=== PATIENT | female | born 1965 | race Caucasian/White ===

== ENCOUNTER → 2017-06-28 | Outpatient (CLI) | payer BC ==
[~2017-06-28] MED LIST: ACET-24 PO; ALPR0.25 PO; ASPI81TA28 PO; ATV/1 SL; CALC500C70 PO; CALC600T37 PEG; CHOL1000 PO; CLB200 PO; FLAX100019 PO; FLUO40CA8 PO; FLUT0.15; HYDR-3292 TOP; MULT-506 PO; OMEG10007 PO; ONDA8TAB6 PO; RANI150T3 PO; RXC5 PO; SIMV20TA2 PO; SNK PO; XANAX
--- NOTE | 2017-06-29 12:46 | MAMMOGRAPHY REPORT ---
BILATERAL DIGITAL SCREENING MAMMOGRAM TOMOSYNTHESIS WITH CAD: 06/28/2017 CLINICAL HISTORY: Routine screening. Patient has no complaints. TECHNIQUE: Breast tomosynthesis in addition to standard 2D mammography was performed. Current study was also evaluated with a Computer Aided Detection (CAD) system. COMPARISON: Comparison is made to exams dated: 06/10/2016 mammogram, 03/05/2015 mammogram, 02/27/2014 anurag mogram, 01/18/2013 mammogram, 01/11/2012 mammogram, and 01/10/2011 mammogram - [facility]. BREAST COMPOSITION: The tissue of both breasts is almost entirely fatty. FINDINGS: There are benign rim calcifications in the left breast. No new suspicious mass, architectu ral distortion or cluster of microcalcifications is seen. IMPRESSION: ACR BI-RADS CATEGORY 1: NEGATIVE There is no mammographic evidence of malignancy. A 1 year screening mammogram is recommended. The pa tient will receive written notification of the results. Approximately 10% of breast cancers are not detected with mammography. A negative mammographic report should not delay biopsy if a clinically suggestive mass is present. Vani Rivas M.D. ay/:06/28/2017 15:07:17 Drapery Supervisor: Billie SANTOYO(Nelda)(Callie)(BD), [facility] letter sent: Normal 1/2 BI-RADS Code: ACR BI-RADS Category 1: Negative
== END | disposition home or self-care (01) ==
LOC: C.MAMM 14:08
PROVIDERS: ATTEND Nurse Practitioner Family
DX: Z12.31 Encounter for screening mammogram for malignant neoplasm of breast (principal)

== ENCOUNTER 2017-08-30 05:08 | Inpatient (IN) | payer BC ==
[2017-08-16 09:42] VITALS: BMI 38.0
--- NOTE | 2017-08-16 10:24 | PAT Medication Instructions ---
Service Date Aug 16, 2017. Current Home Medication List Alprazolam (Xanax), 1 TAB PO TID PRN for Anxiety/Agitation Aspirin (Aspirin Ec), 81 MG PO QAM Calcium (Calcium), 1 TAB PEG QAM Cholecalciferol (Vitamin D3), 1 TAB PO QA Fish Oil (Skykomish-3), 1 CAP PO QAM Flaxseed (Linseed) (Flaxseed Oil 1000 mg), 1 TAB PO Q12 Fluoxetine (Prozac), 40 MG PO QAM Fluticasone Propionate (Nasal) (Flonase Allergy Relief), 2 SPRAYS NA QAM Hydroquinone (Tl Hydroquinone), 1 APPLN TOP BID Lorazepam (Ativan), 1 MG SL DAILY PRN for Anxiety Multivitamin (Multivitamin), 1 TAB PO QAM Ranitidine Hcl (Zantac), 150 MG PO BID Simvastatin (Zocor), 20 MG PO QPM Medication Instructions For Your Scheduled Surgery - Hold the following medications 2 weeks prior to surgery: Fish Oil (Skykomish-3), 1 CAP PO QAM Flaxseed (Linseed) (Flaxseed Oil 1000 mg), 1 TAB PO Q12 - Hold the following medications 24 hours prior to surgery: Hydroquinone (Tl Hydroquinone), 1 APPLN TOP BID - Hold the following medications the morning of surgery: Calcium (Calcium), 1 TAB PEG QAM Cholecalciferol (Vitamin D3), 1 TAB PO QA Multivitamin (Multivitamin), 1 TAB PO QAM - Take the following medications the morning of surgery with a sip of water OTHERWISE NOTHING TO EAT OR DRINK AFTER MIDNIGHT: Alprazolam (Xanax), 1 TAB PO TID PRN for Anxiety/Agitation Aspirin (Aspirin Ec), 81 MG PO QAM Fluoxetine (Prozac), 40 MG PO QAM Ranitidine Hcl (Zantac), 150 MG PO BID Fluticasone Propionate (Nasal) (Flonase Allergy Relief), 2 SPRAYS NA QAM - Take the following medications as scheduled the night before surgery: Alprazolam (Xanax), 1 TAB PO TID PRN for Anxiety/Agitation Simvastatin (Zocor), 20 MG PO QPM Ranitidine Hcl (Zantac), 150 MG PO BID If you have any questions please call us at [phone] or [phone] or [phone]
--- NOTE | 2017-08-16 10:56 | DIAGNOSTIC IMAGING REPORT ---
CHEST PREADMISSION(PA/LAT) CLINICAL HISTORY: PAT preoperative evaluation COMPARISON STUDY: No previous studies for comparison. FINDINGS: The bones soft tissues and hemidiaphragms are normal. The cardiomediastinal silhouette is normal. The lungs are clear. The pulmonary vasculature is normal. IMPRESSION: Negative chest. The above report was generated using voice recognition software. It may contain grammatical, syntax or spelling errors. Electronically signed by: Jhony Solo M.D. 08/16/2017 10:55 AM Dictated Date/Time: 08/16/2017 10:55 AM
[2017-08-16 11:33] LABS: BASO % 0.5 %; BASO ABS # 0.04 K/uL (0-0.2); COMPLETE YES; EOS % 2.3 %; IG% 0.1 %; LYMPH % 25.1 %; LYMPH ABS # 1.83 K/uL (1.2-3.4); MEAN CELL VOLUME 89.8 fL (80-100); MEAN CORPUSCULAR HEMOGLOBIN 30.4 pg (25-34); MEAN CORPUSCULAR HGB CONC 33.9 g/dl (32-36); MEAN PLATELET VOLUME 11.8 fL (7.4-10.4); PLATELET COUNT 223 K/uL (130-400); WHITE BLOOD COUNT 7.28 K/uL (4.8-10.8)
[2017-08-16 11:35] LABS: URINE APPEARANCE CLEAR (CLEAR); URINE BILIRUBIN NEG (NEG); URINE COLOR YELLOW; URINE NITRITE NEG (NEG); UROBILINOGEN NEG (NEG)
[2017-08-16 11:43] LABS: MANUAL MICROSCOPIC REQUIRED? NO; REVIEW REQ? NO
[2017-08-16 11:44] LABS: PARTIAL THROMBOPLASTIN RATIO 1.1; PROTHROMBIN TIME (PATIENT) 10.7 SECONDS (9.0-12.0)
[2017-08-16 12:02] LABS: CALCIUM 9.3 mg/dl (8.5-10.1); CREATININE 0.89 mg/dl (0.60-1.20); POTASSIUM 4.2 mmol/L (3.5-5.1)
[2017-08-16 12:21] LABS: ESTIMATED AVERAGE GLUCOSE 105 mg/dl; HA1C FLAG Normal (Normal)
--- NOTE | 2017-08-29 16:12 | HISTORY & PHYSICAL EXAMINATION ---
DATE OF ADMISSION: 08/30/2017 HISTORY OF PRESENT ILLNESS: The patient presents as a very pleasant 51-year-old white female, 5 feet 10 inches, 190 pounds who presents with complaints of ongoing severe DJD about her left knee. She has been nonresponsive to conservative therapy including relative rest, activity modification, viscosupplementation, corticosteroid injection, bracing. She presents for left total knee arthroplasty after failing all attempts at conservative management and having thorough discussion regarding risks, complications of such. PAST MEDICAL HISTORY: Significant for sleep apnea, anxiety, acid reflux, obesity. FAMILY HISTORY: Otherwise unremarkable and noncontributory. SOCIAL HISTORY: The patient denies history of smoking, relates 1 alcoholic drink per week and no recreational drug use. PAST SURGICAL HISTORY: Significant for 1991 previous trigger finger surgery, cyst removal from wrist, tonsillectomy. ALLERGIES: None. MEDICATIONS: Include Prozac, simvastatin, ranitidine, aspirin, fish oil. REVIEW OF SYSTEMS: Otherwise unremarkable. See history of present illness for pertinent positives. PHYSICAL EXAMINATION: GENERAL: Reveals a very pleasant 51-year-old white female, alert and oriented x3. HEAD, EYES, EARS, NOSE, AND THROAT: Atraumatic, in no acute distress. HEART: Regular at 72 beats per minute. LUNGS: Clear, no rales, rhonchi, or wheezes noted. ABDOMEN: Soft, nontender, nondistended. Bowel sounds are present in all 4 quadrants. MUSCULOSKELETAL EXAMINATION: Consistent with that of severe end-stage tricompartmental degenerative joint disease of the left knee. PLAN: Left total knee arthroplasty, postoperative pain management, DVT prophylaxis, antibiotics.
[2017-08-30] VITALS (10 sets, daily range): BP systolic 105–135; BP diastolic 61–82; PULSE 72–95; TEMP 36.4–37; O2SAT 94–100; Ht 154.9 cm; Wt 90.5 kg
[~2017-08-30] VITALS: Ht 154.9 cm; Wt 90.5 kg
[~2017-08-30 05:08] MED LIST changes: -ACET-24 PO; -ATV/1 SL; -CALC500C70 PO; -CLB200 PO; -ONDA8TAB6 PO; -RXC5 PO; -SNK PO; -XANAX
[2017-08-30] MEDS ORDERED: CALC500C70 PO (05:58)
[2017-08-30] MEDS ORDERED: ROPIVACAINE 5MG/ML 30 ML 150 MG, BUPIVACAINE/EPINEPHR 0.5% MPF 30 ML, KETOROLAC TROMETH... INFIL SCH ×7 (06:00)
[2017-08-30] MEDS ORDERED: FAMOTIDINE 20 MG TAB PO SCH (06:00)
[2017-08-30] MEDS ORDERED: LACTATED RINGER'S 1000ML IV SCH (06:00)
[2017-08-30] MEDS ORDERED: CeleBREX 200 MG CAP PO SCH (06:00)
[2017-08-30] MEDS ORDERED: METOCLOPRAMIDE HCL 10 MG TAB PO SCH (06:00)
[2017-08-30] MEDS ORDERED: LACTATED RINGER'S 1000ML 500 ML IV ONE (06:00)
[2017-08-30] MEDS ORDERED: GABAPENTIN 300 MG CAP PO SCH (06:00)
[2017-08-30] MEDS ORDERED: LACTATED RINGER'S 1000ML 1,000 ML IV SCH (06:00)
[2017-08-30] MEDS ORDERED: CEFAZOLIN 2000 MG/60 ML D5W 60 ML IV SCH (06:00)
[2017-08-30] MEDS ORDERED: ACETAMINOPHEN 500 MG TAB PO SCH (06:00)
[2017-08-30] MEDS ORDERED: DEXAMETHASONE 4 MG TAB PO SCH (06:00)
[2017-08-30] MEDS ORDERED: BUPIVACAINE 0.25% 30 ML VIAL ONE (06:23)
[2017-08-30] MEDS ORDERED: BUPIVACAINE 0.5 % 5 MG/1 ML PF 10ML VIAL ONE (06:23)
[2017-08-30] MEDS ORDERED: MIDAZOLAM HCL 1 MG/ML 2ML VIAL ONE (06:27)
[2017-08-30] MEDS ORDERED: PROPOFOL IV EMULSION 10 MG/ML 20 ML VIAL IV ONE ×2 (06:27→08:11)
[2017-08-30] MEDS ORDERED: FENTANYL CITRATE INJ 50 MCG/1 ML 2 ML VIAL ONE (06:27)
[2017-08-30] MEDS: TRANEXAMIC ACID INJ 1,000 MG in SODIUM CHLORIDE 0.9% 100ML 100 ML IV SCH ×2 (06:30→06:50)
[2017-08-30] MEDS ORDERED: POVIDONE-IODINE OP SOLN 30 ML BTL ONE (06:41)
[2017-08-30] MEDS ORDERED: ORTHO JOINT ANESTHETIC ONE (06:41)
[2017-08-30] MEDS ORDERED: BACITRACIN 50000 UNIT VIAL ONE (06:41)
--- NOTE | 2017-08-30 07:04 | History & Physical Bridge Note ---
H&P Re-Evaluation Bridge Note: I have examined the patient, reviewed the History & Physical and in the interval since the performance of the History & Physical I have noted the following changes of clinical significance: No changes noted
[2017-08-30] MEDS ORDERED: KETOROLAC TROMETHAMINE 30 MG/ML VIAL IV. PRN ×2 (07:15→08:45)
[2017-08-30] MEDS ORDERED: PHENYLEPHRINE 100MCG/ML 5ML SYR IV PRN (07:15)
[2017-08-30] MEDS ORDERED: HYDROmorphone INJ 2 MG/ML SYR/VIAL IV PRN (07:15)
[2017-08-30] MEDS ORDERED: ONDANSETRON INJ 2 MG/ML 2 ML VIAL IV PRN ×2 (07:15→08:45)
[2017-08-30] MEDS ORDERED: ATROPINE SULFATE 0.1 MG/ML 5ML SYR IV PRN (07:15)
[2017-08-30] MEDS ORDERED: EpHEDrine SULFATE INJ 50 MG/ML AMP IV PRN (07:15)
--- NOTE | 2017-08-30 08:05 | [facility] Operative Report ---
Operative Report Operative Date Aug 30, 2017. Pre-Operative Diagnosis Dejenerative Joint Disease Left Knee Post-Operative Diagnosis Degenerative Joint Disease Procedure(s) Performed Left Total Knee Arthroplasty utilizing Tillman & Nephew journey 2 patient matched total knee arthroplasty size 4 femur to tibia 10 poly-[address] Rico Marketing Sales Supervisor Surgeon(s) Jhony Bermudez PA-C Estimated Blood Loss 5 mL Findings Patient presents with severe end-stage DJD with varus alignment subchondral cystic formation medial joint line where with bone the bone changes she's been Nourse wants to conservative therapy including physical therapy anti- inflammatories relative rest injections presents for total knee arthroplasty Specimens As Per Surgeon A. Left Knee Bone and Tissue Complication(s) None Disposition Recovery Room / PACU Indications Patient's failed attempts at conservative management including injections physical therapy anti-inflammatories relative rest activity modification and presents for total knee arthroplasty thorough discussion regarding risk and complications Description of Procedure After proper prepping and draping of the left lower extremity anterior midline incision was made over the region of the extensor extensor mechanism after meticulous hemostasis was obtained and maintained in subcutaneous tissues a medial parapatellar incision was made The patella was subluxed lateralward the medial lateral gutter were cleaned from any hypertrophic synovitis and scar tissue of the distal femoral block was placed and the distal femoral osteotomy cut was made subsequently the chamfers anterior and posterior osteotomy cuts were made utilizing the 4-in-1 block the tibia was subsequently subluxed anteriorward medial and ateral meniscal remnants were excised in their entirety remnants of the anterior and posterior cruciate ligaments were excised in their entirety excellent exposure of the proximal tibia was obtained the tibial osteotomy guide was placed on the proximal tibial osteotomy cut was made once again the knee was irrigated with copious amounts of sterile saline solution the patella was subsequently everted lateralward thickened scar tissue around the patella was removed the patella was subsequently cut utilizing a freehand technique and was drilled prepared for final preparation and placement of patella socially flexion-extension gaps were checked and the equal and symmetric trials were placed to the appropriate femoral and tibial trials with poly-spacer being placed for equal flexion and extension gaps and full range of motion including extension to 0 and flexion to 140 the trial components after having been taken to recovery range of motion was subsequently removed meticulous hemostasis was obtained and maintained subsequently a knee block injection of joint cocktail including ropivacaine 0.5% 150 mg. Bupivacaine 0.5 % epinephrine 1-200,030 mL's toradol 30 mg dexamethasone 4 mg ketamine 10 mg clonidine 100 micrograms normal saline solution 30 mg was infiltrated into the soft tissues of the posterior knee medial lateral gutters and periosteal synovium special attention was paid to protect neurovascular structures at all times subsequently trial components having been removed the knee was irrigated with sterile saline solution. debris was removed the proximal tibia was subsequently prepared and was made ready for the placement of the tibial component tibial component was also cemented and tamped into position the femoral component was subsequently placed and cemented in the position the patellar component was subsequently cemented in position because hemostasis once again obtained and maintained wound having been thoroughly irrigated with debridement and debridement lavage was performed as well as a medial parapatellar incision closed with #1 Vicryl in interrupted fashion subcutaneous was closed with #2 Vicryl skin was closed with skin clips. PA-C was necessary for prepping and drapping as well as wound closure of deep fascia Sub cutaneous tissue and skin and was necessary for the case. A sterile compressive dressing was placed patient was taken to recovery in stable condition of report dictated by Jacky I attest to the content of the Intraoperative Record and any orders documented therein. Any exceptions are noted below. I attest to the content of the Intraoperative Record and any orders documented therein. Any exceptions are noted below.
[2017-08-30] MEDS ORDERED: MAGNESIUM HYDROXIDE SUSP 30 ML UDC PO PRN (08:45)
[2017-08-30] MEDS ORDERED: TRAMADOL HCL 50 MG TAB PO PRN (08:45)
[2017-08-30] MEDS ORDERED: ALPRAZOLAM 0.25 MG TAB PO PRN (08:45)
[2017-08-30] MEDS ORDERED: ALUMINUM/MAGNESIUM/SIMETH (MAALOX MAX) 30 ML UDC PO PRN (08:45)
[2017-08-30] MEDS ORDERED: SOD PHOSPHATE/SOD BIPHOSPHATE ENEMA 132 ML BTL PR PRN (08:45)
[2017-08-30] MEDS ORDERED: ZOLPIDEM TARTRATE 5 MG TAB PO PRN (08:45)
[2017-08-30] MEDS ORDERED: BISACODYL 10 MG SUPP PR PRN (08:45)
[2017-08-30] MEDS ORDERED: MoRPHine SULFATE 2 MG/ML CARP IV PRN (08:45)
[2017-08-30] MEDS: FLUOXETINE HCL 20 MG CAP PO SCH (09:00)
--- NOTE | 2017-08-30 09:56 | DIAGNOSTIC IMAGING REPORT ---
LEFT KNEE 2 VIEWS History: Left total knee arthroplasty. Degenerative arthritis. Postop. FINDINGS: The patient is status post a left total knee arthroplasty. The hardware is intact. No fracture or dislocation. Surgical drains are in place. IMPRESSION: Left total knee arthroplasty. No evidence for hardware complication. Electronically signed by: Ramón Black M.D. 08/30/2017 9:55 AM Dictated Date/Time: 08/30/2017 9:54 AM
[2017-08-30] MEDS ORDERED: MoRPHine SULFATE 10 MG/ML CARP/VIAL IV PRN (10:15)
[2017-08-30] MEDS ORDERED: MoRPHine SULFATE 4 MG/ML 1 ML CARP\\VIAL IV PRN ×2 (10:15)
--- NOTE | 2017-08-30 10:35 | Anesthesiology Progress Note ---
Anesthesia Post Op Note Date & Time Aug 30, 2017 at 10:35 Vital Signs Pain Intensity: 0.0 Vital Signs Past 12 Hours Date Time Temp Pulse Resp B/P (MAP) Pulse Ox O2 Delivery O2 Flow Rate FiO2 08/30/17 10:00 36.4 94 18 110/73 (85) 95 Room Air 08/30/17 09:30 100 Nasal Cannula 2.0 08/30/17 09:30 100 Nasal Cannula 2.0 08/30/17 09:30 36.7 93 18 135/81 (99) 100 Nasal Cannula 2.0 08/30/17 09:20 89 14 140/76 100 Nasal Cannula 2 08/30/17 09:10 89 14 146/77 100 Nasal Cannula 2 08/30/17 09:00 36.6 97 14 142/75 100 Nasal Cannula 2 08/30/17 08:50 99 14 129/69 100 Nasal Cannula 2 08/30/17 08:44 36.5 100 12 145/78 100 Nasal Cannula 3 08/30/17 05:44 36.8 72 18 126/82 98 Room Air Notes Mental Status: alert / awake / arousable, participated in evaluation Pt Amnestic to Procedure: Yes Nausea / Vomiting: adequately controlled Pain: adequately controlled Airway Patency, RR, SpO2: stable & adequate BP & HR: stable & adequate Hydration State: stable & adequate Anesthetic Complications: no major complications apparent
[2017-08-30] MEDS: D5W AND 1/2NSS + 20MEQ KCL 1,000 ML IV SCH ×2 (11:07→20:44)
[2017-08-30] MEDS: ACETAMINOPHEN 500 MG TAB PO SCH ×2 (15:27→21:49)
[2017-08-30] MEDS: CEFAZOLIN IV 2,000 MG in DEXTROSE 5% 50ML 50 ML IV SCH (15:30)
[2017-08-30] MEDS: SENNA 8.6 MG TAB PO SCH (20:45)
[2017-08-30] MEDS: SIMVASTATIN 20 MG TAB PO SCH (20:45)
[2017-08-30] MEDS: ASPIRIN 81 MG ECTAB PO SCH (20:45)
[2017-08-30] MEDS: DOCUSATE SODIUM 100 MG CAP PO SCH (20:45)
[2017-08-31] MEDS: CEFAZOLIN IV 2,000 MG in DEXTROSE 5% 50ML 50 ML IV SCH (00:07)
[2017-08-31 03:02] VITALS: BP 114/76; PULSE 86; TEMP 36.8; O2SAT 96
[2017-08-31] MEDS: D5W AND 1/2NSS + 20MEQ KCL 1,000 ML IV SCH (05:56)
[2017-08-31] MEDS: ACETAMINOPHEN 500 MG TAB PO SCH ×3 (05:56→21:25)
[2017-08-31 06:07] LABS: HEMATOCRIT 35.8 % (37-47); MEAN CELL VOLUME 90.6 fL (80-100); MEAN CORPUSCULAR HEMOGLOBIN 30.1 pg (25-34); MEAN CORPUSCULAR HGB CONC 33.2 g/dl (32-36); PLATELET COUNT 219 K/uL (130-400); RED BLOOD COUNT 3.95 M/uL (4.2-5.4); WHITE BLOOD COUNT 18.05 K/uL (4.8-10.8)
[2017-08-31 06:39] LABS: BUN/CREATININE RATIO 18.4 (10-20); CALCIUM 8.4 mg/dl (8.5-10.1); CREATININE 0.91 mg/dl (0.60-1.20); POTASSIUM 4.6 mmol/L (3.5-5.1)
[2017-08-31 06:41] LABS: PROTHROMBIN TIME (PATIENT) 10.5 SECONDS (9.0-12.0)
--- NOTE | 2017-08-31 07:20 | Orthopedic Progress Note ---
Orthopedic Progress Note Date of Service Aug 31, 2017. Subjective Post OP Day: 1 (s/p Left TKA) Reports: feeling well, pain controlled w PO medications, Denies: complaints, chest pain, SOB, nausea / vomiting, light headedness, calf pain Objective calves soft nontender, N/V intact, capillary refill less than 2 sec., dressing C /D/I, A&O x3, toes mobile Date Time Temp Pulse Resp B/P (MAP) Pulse Ox O2 Delivery O2 Flow Rate FiO2 08/31/17 03:02 36.8 86 16 114/76 (89) 96 Room Air 08/31/17 00:05 Room Air 08/30/17 22:56 36.8 81 16 117/66 (83) 95 Room Air 08/30/17 19:51 36.8 95 16 113/73 (86) 96 Room Air 08/30/17 16:08 36.7 91 16 106/61 (76) 95 Room Air 08/30/17 15:40 96 Room Air 08/30/17 15:08 36.9 76 18 105/62 (76) 08/30/17 12:14 37.0 93 18 123/70 (87) 96 Room Air 08/30/17 10:45 36.5 95 19 114/72 (86) 94 Room Air 08/30/17 10:00 36.4 94 18 110/73 (85) 95 Room Air 08/30/17 09:30 100 Nasal Cannula 2.0 08/30/17 09:30 100 Nasal Cannula 2.0 08/30/17 09:30 36.7 93 18 135/81 (99) 100 Nasal Cannula 2.0 08/30/17 09:20 89 14 140/76 100 Nasal Cannula 2 08/30/17 09:10 89 14 146/77 100 Nasal Cannula 2 08/30/17 09:00 36.6 97 14 142/75 100 Nasal Cannula 2 08/30/17 08:50 99 14 129/69 100 Nasal Cannula 2 08/30/17 08:44 36.5 100 12 145/78 100 Nasal Cannula 3 Laboratory Results 24 Hours: Test 08/31/17 05:47 Hematocrit 35.8 % Hemoglobin 11.9 g/dL Prothromb Time International Ratio 1.0 Prothrombin Time 10.5 SECONDS Assessment & Plan Assessment: POD #1 s/p Left TKA -pt/ot -dvt proph with zora/scd/asa -plan for d/c home with HHPT when stable Discharge Planning Discharge Planning: home with home health DVT Prophylaxis: TEDs, SCDs, ASA Therapy: Physical Therapy
--- NOTE | 2017-08-31 07:21 | Discharge Instructions ---
Discharge Instructions Date of Service Aug 31, 2017. Admission Reason for Admission: Left Knee Osteoarthritis Discharge Discharge Diagnosis / Problem: left total knee replacement Discharge Goals Goal(s): Decrease discomfort, Improve function, Increase independence Activity Recommendations Activity Limitations: as noted below Weightbearing Status: Left weightbearing (as tolerated) . Instructions / Follow-Up Instructions / Follow-Up ACTIVITY RECOMMENDATIONS: SELF CARE INSTRUCTIONS AFTER TOTAL KNEE REPLACEMENT A. You may need to continue a physical therapy program after discharge from the hospital. There are several options available to you. Your doctor will assist you in selecting the best one for you. 1. An out-patient facility 2 to 3 times a week for therapy or home therapy. 2. Continue working on all exercises taught to you in the hospital. Your goals should be to increase bending of your knee to 90 degrees and beyond and to fully straighten your knee. B. You may progress at your own pace from walking with a walker or crutches to a cane; then to no assistive devices. C. Make walking a part of your daily routine. Be up as much as comfortable with rest periods throughout the day. Rest with leg elevation is very important. Use the ice wrap frequently for the first 3-4 weeks. D. There are no restrictions on activities. You may ride in a car, shop, participate in community health nurse and all social activities. E. Wear the long elastic stockings (DARIAN hose) 20 hours a day for 2 weeks after surgery. They can be removed several times a day for laundering and for a bath. F. You may shower, no tub baths until cleared by your doctor. SPECIAL CARE INSTRUCTIONS: VERY IMPORTANT TO READ AND REVIEW A. There are a few signs you need to watch for after you are home. Call [facility] [place] if you notice any of the followin. Increased severe knee pain. Some pain is expected especially when you exercise. 2. Increased swelling in your leg or knee; pain or swelling of the calf muscle in either lower leg. 3. Any fluid drainage from the incision. 4. Shortness of breath or chest pain. B. Please call [facility] at if you have any concerns or questions about your operation or recovery. The doctor or his nurse will return your call promptly. C. You must take antibiotics before dental work, bladder, bowel or other surgery. Your doctor will provide you with a permanent care to carry describing this precaution. IMPORTANT: * REMEMBER TO TAKE ASPIRIN, 81 MG, TWICE DAILY FOR 4 WEEKS UNLESS OTHERWISE DIRECTED. THIS IS YOUR BLOOD THINNER. * HIGH RISK PATIENTS MAY BE PRESCRIBED A STRONGER BLOOD THINNER. THIS WILL BE PROVIDED AT DISCHARGE. * CALL IF INCREASED PAIN, REDNESS, DRAINAGE OR FEVER GREATER THAT 101. * WEAR DARIAN HOSE 20 HOURS PER DAY FOR 2 WEEKS. * DERMABOND Prineo- This is a mesh tape dressing that is covered with glue. It should remain in place until the incision is properly healed, usually 10-14 days. This dressing is designed to naturally slough off. You may trim the excess mesh tape as it peels off. Incision may be briefly wet in a shower. Dry immediately by blotting with a clean, dry towel. Do not bath or swim until instructed by your doctor. Do not scratch, rub, or pick at the dressing. Do not apply any topical ointments or lotions until dressing is completely removed and/or instructed by your doctor. There may be a small piece of suture material at one end of your incision. Do not pull or trim this. If it is bothersome or catching on clothing, you may cover it with a band-aid. FOLLOW UP VISIT: If appointment is not already scheduled: Please call [facility] to make a follow-up appointment for 2 weeks after your surgery at . Current Hospital Diet Patient's current hospital diet: Regular Diet Discharge Diet Recommended Diet: Regular Diet Procedures Procedures Performed: Left Total Knee Arthroplasty utilizing Tillman & Nephew journey 2 patient matched total knee arthroplasty size 4 femur to tibia 10 poly-29 oval patella Pending Studies Studies pending at discharge: no Laboratory Results Hemoglobin A1c Test 08/16/17 10:35 Range/Units Estimated Average Glucose 105 mg/dl Hemoglobin A1c 5.3 4.5-5.6 % Medical Emergencies . Who to Call and When: Medical Emergencies: If at any time you feel your situation is an emergency, please call 911 immediately. . Non-Emergent Contact Non-Emergency issues call your: Primary Care Provider, Surgeon . "Provider Documentation" section prepared by Jhony Bermudez. . VTE Core Measure Inpt VTE Proph given/why not?: Other Anticoagulation (ASA 81mg po bid x 1 month ), THermes [place], SCD's [place] Drug Monitoring Program Search Results: patient reviewed within database, no issues identified
[2017-08-31 07:46] VITALS: BP 101/61; PULSE 77; TEMP 36.4; O2SAT 95
[2017-08-31] MEDS: CALCIUM 600MG + VIT D 400 IU TAB PO SCH (08:14)
[2017-08-31] MEDS: DOCUSATE SODIUM 100 MG CAP PO SCH ×2 (08:14→20:36)
[2017-08-31] MEDS: FLUTICASONE PROPIONATE NA SPR 16 GM BTL SCH (08:15)
[2017-08-31] MEDS: MULTIVITAMIN TAB PO SCH (08:15)
[2017-08-31] MEDS: FLUOXETINE HCL 20 MG CAP PO SCH (08:15)
[2017-08-31] MEDS: PANTOprazole SOD 40 MG TAB PO SCH (08:15)
[2017-08-31] MEDS: ASPIRIN 81 MG ECTAB PO SCH ×2 (08:15→20:36)
[2017-08-31] MEDS: OXYCODONE HCL IR 5 MG TAB (IMMEDIATE RELEASE) PO PRN ×2 (09:57→20:40)
--- NOTE | 2017-08-31 10:44 | Anesthesiology Progress Note ---
Anesthesia Post Op Note Date & Time Aug 31, 2017 at 10:41 Vital Signs Pain Intensity: 2.0 Vital Signs Past 12 Hours Date Time Temp Pulse Resp B/P (MAP) Pulse Ox O2 Delivery O2 Flow Rate FiO2 08/31/17 07:46 36.4 77 19 101/61 (74) 95 Room Air 08/31/17 03:02 36.8 86 16 114/76 (89) 96 Room Air 08/31/17 00:05 Room Air 08/30/17 22:56 36.8 81 16 117/66 (83) 95 Room Air Notes Mental Status: alert / awake / arousable, participated in evaluation Pt Amnestic to Procedure: Yes Nausea / Vomiting: adequately controlled Pain: adequately controlled Airway Patency, RR, SpO2: stable & adequate BP & HR: stable & adequate Hydration State: stable & adequate Neuraxial Anesthesia: was administered, sensory block resolved Anesthetic Complications: no major complications apparent
[2017-08-31 15:34] VITALS: BP 115/71; PULSE 73; TEMP 36.9; O2SAT 97
[2017-08-31] MEDS: CeleBREX 200 MG CAP PO SCH (20:36)
[2017-08-31] MEDS: SENNA 8.6 MG TAB PO SCH (20:36)
[2017-08-31] MEDS: SIMVASTATIN 20 MG TAB PO SCH (20:36)
[2017-08-31 23:06] VITALS: BP 115/70; PULSE 73; TEMP 36.8; O2SAT 98
[2017-09-01] MEDS: ACETAMINOPHEN 500 MG TAB PO SCH (05:59)
[2017-09-01 07:01] VITALS: BP 121/73; PULSE 78; TEMP 36.8; O2SAT 97
[2017-09-01] MEDS: PANTOprazole SOD 40 MG TAB PO SCH (08:28)
[2017-09-01] MEDS: MULTIVITAMIN TAB PO SCH (08:28)
[2017-09-01] MEDS: FLUTICASONE PROPIONATE NA SPR 16 GM BTL SCH (08:28)
[2017-09-01] MEDS: DOCUSATE SODIUM 100 MG CAP PO SCH (08:29)
[2017-09-01] MEDS: CeleBREX 200 MG CAP PO SCH (08:29)
[2017-09-01] MEDS: ASPIRIN 81 MG ECTAB PO SCH (08:29)
[2017-09-01] MEDS: FLUOXETINE HCL 20 MG CAP PO SCH (08:29)
[2017-09-01] MEDS: CALCIUM 600MG + VIT D 400 IU TAB PO SCH (08:30)
[2017-09-01] MEDS ORDERED: ONDA8TAB6 PO (08:59)
[2017-09-01] MEDS ORDERED: CLB200 PO (08:59)
[2017-09-01] MEDS ORDERED: RXC5 PO (08:59)
[2017-09-01] MEDS ORDERED: SNK PO (08:59)
[2017-09-01] MEDS ORDERED: ASPI81TA28 PO (08:59)
[2017-09-01] MEDS ORDERED: ACET-24 PO (08:59)
--- NOTE | 2017-09-01 09:44 | Discharge Summary ---
Orthopedic Discharge Summary Admission Date/Reason Aug 30, 2017 at 06:52 Left Knee Osteoarthritis. Discharge Date/Disposition Sep 01, 2017 Home with services Diagnosis Principal Diagnosis: left total knee replacement Procedure(s) Performed Left Total Knee Arthroplasty utilizing [employer] journey 2 patient matched total knee arthroplasty size 4 femur to tibia 10 poly-29 oval patella Consultations NONE Medication Reconciliation New Medications: Ondansetron Hcl (Zofran) 8 Mg Tab 8 MG PO Q8 PRN for Nausea, #20 TAB Acetaminophen (Sb Non-Aspirin Extra Stre) 500 Mg Tab 1000 MG PO Q8H for 30 Days, #180 TAB Celecoxib (Celebrex) 200 Mg Cap 200 MG PO BID, #60 CAP Oxycodone HCl (Oxycodone HCl) 5 Mg Tab 5-10 MG PO Q4H PRN for Pain, #60 TAB Senna (Senna Lax) 8.6 Mg Tab 17.2 MG PO HS for 14 Days, TAB Changed Medications: Aspirin (Aspirin Ec) 81 Mg Tab 81 MG PO BID for 30 Days (Changed from: QAM) Continued Medications: Alprazolam (Xanax) 0.25 Mg Tab 1 TAB PO TID PRN for Anxiety/Agitation for 30 Days, #90 TAB Calcium/Vitamin D (Os-Prasanna 500 Plus D) Tab 1 TAB PO DAILY, TAB Cholecalciferol (Vitamin D3) 1,000 Unit Tab 1 TAB PO QA for 90 Days, TAB 3 Refills Fish Oil ([place]-3) 1 Ea Cap 1 CAP PO QAM, CAP Flaxseed (Linseed) (Flaxseed Oil 1000 mg) 1 Cap Cap 1 TAB PO Q12 Fluoxetine (Prozac) 40 Mg Cap 40 MG PO QAM, CAP Fluticasone Propionate (Nasal) (Flonase Allergy Relief) 50 Mcg/Act Spr 2 SPRAYS NA QAM Hydroquinone (Tl Hydroquinone) 4 % Cre 1 APPLN TOP BID, #30 GM 2 Refills Multivitamin (Multivitamin) Tab 1 TAB PO QAM, TAB Ranitidine Hcl (Zantac) 150 Mg Tab 150 MG PO BID, TAB Simvastatin (Zocor) 20 Mg Tab 20 MG PO QPM, TAB Admission Physical Exam As per Admitting History & Physical. Hospital Course Patient was a same day admission after undergoing a successful left TKA. she tolerated the procedure well. Post-operatively, her activity was progressed and well tolerated. Please refer to daily progress notes and PT notes for complete details. After exam on 09/01/17, patient felt to be stable for discharge home with HHPT. Patient will f/u in the office in 2 weeks for further evaluation including x-rays and incision check, sooner if having any issues or concerns. Below are pertinent labs/studies during their hospital stay: Last Resulted CBC 08/31/17 05:47 Last Resulted BMP 08/31/17 05:47 Last Vital Signs Documentation Date Time Temp Pulse Resp B/P (MAP) Pulse Ox O2 Delivery O2 Flow Rate FiO2 09/01/17 07:01 36.8 78 16 121/73 (89) 97 Room Air 08/30/17 09:30 2.0 Discharge Instructions ACTIVITY RECOMMENDATIONS: SELF CARE INSTRUCTIONS AFTER TOTAL KNEE REPLACEMENT A. You may need to continue a physical therapy program after discharge from the hospital. There are several options available to you. Your doctor will assist you in selecting the best one for you. 1. An out-patient facility 2 to 3 times a week for therapy or home therapy. 2. Continue working on all exercises taught to you in the hospital. Your goals should be to increase bending of your knee to 90 degrees and beyond and to fully straighten your knee. B. You may progress at your own pace from walking with a walker or crutches to a cane; then to no assistive devices. C. Make walking a part of your daily routine. Be up as much as comfortable with rest periods throughout the day. Rest with leg elevation is very important. Use the ice wrap frequently for the first 3-4 weeks. D. There are no restrictions on activities. You may ride in a car, shop, participate in darklight inspector and all social activities. E. Wear the long elastic stockings (DARIAN hose) 20 hours a day for 2 weeks after surgery. They can be removed several times a day for laundering and for a bath. F. You may shower, no tub baths until cleared by your doctor. SPECIAL CARE INSTRUCTIONS: VERY IMPORTANT TO READ AND REVIEW A. There are a few signs you need to watch for after you are home. Call [facility] if you notice any of the followin. Increased severe knee pain. Some pain is expected especially when you exercise. 2. Increased swelling in your leg or knee; pain or swelling of the calf muscle in either lower leg. 3. Any fluid drainage from the incision. 4. Shortness of breath or chest pain. B. Please call [facility] at if you have any concerns or questions about your operation or recovery. The doctor or his nurse will return your call promptly. C. You must take antibiotics before dental work, bladder, bowel or other surgery. Your doctor will provide you with a permanent care to carry describing this precaution. IMPORTANT: * REMEMBER TO TAKE ASPIRIN, 81 MG, TWICE DAILY FOR 4 WEEKS UNLESS OTHERWISE DIRECTED. THIS IS YOUR BLOOD THINNER. * HIGH RISK PATIENTS MAY BE PRESCRIBED A STRONGER BLOOD THINNER. THIS WILL BE PROVIDED AT DISCHARGE. * CALL IF INCREASED PAIN, REDNESS, DRAINAGE OR FEVER GREATER THAT 101. * WEAR DARIAN HOSE 20 HOURS PER DAY FOR 2 WEEKS. * DERMABOND Prineo- This is a mesh tape dressing that is covered with glue. It should remain in place until the incision is properly healed, usually 10-14 days. This dressing is designed to naturally slough off. You may trim the excess mesh tape as it peels off. Incision may be briefly wet in a shower. Dry immediately by blotting with a clean, dry towel. Do not bath or swim until instructed by your doctor. Do not scratch, rub, or pick at the dressing. Do not apply any topical ointments or lotions until dressing is completely removed and/or instructed by your doctor. There may be a small piece of suture material at one end of your incision. Do not pull or trim this. If it is bothersome or catching on clothing, you may cover it with a band-aid. FOLLOW UP VISIT: If appointment is not already scheduled: Please call [facility] to make a follow-up appointment for 2 weeks after your surgery at .
[2017-09-01 10:04] VITALS: BP 121/73; PULSE 78; TEMP 36.8; O2SAT 97
[2017-09-01] MEDS: OXYCODONE HCL IR 5 MG TAB (IMMEDIATE RELEASE) PO PRN (10:23)
--- NOTE | 2017-09-01 11:38 | Orthopedic Progress Note ---
Orthopedic Progress Note Date of Service Sep 01, 2017. Subjective Post OP Day: 2 Reports: feeling well, Denies: chest pain, SOB, nausea / vomiting, light headedness, calf pain Objective calves soft nontender, N/V intact, incision C/D/I, A&O x3, toes mobile Date Time Temp Pulse Resp B/P (MAP) Pulse Ox O2 Delivery O2 Flow Rate FiO2 09/01/17 10:04 36.8 78 16 97 Room Air 09/01/17 07:01 36.8 78 16 121/73 (89) 97 Room Air 08/31/17 23:55 Room Air 08/31/17 23:06 36.8 73 16 115/70 (85) 98 Room Air 08/31/17 15:34 36.9 73 18 115/71 (86) 97 Room Air 08/31/17 15:25 Room Air Assessment & Plan Assessment: POD #2 s/p Left TKA -pt/ot -dvt proph with zora/scd/asa -plan for d/c home with HHPT when stable. DC HOME TODAY Discharge Planning Discharge Planning: home with home health DVT Prophylaxis: TEDs, SCDs, ASA Therapy: Physical Therapy
== END 2017-09-01 14:01 | disposition home health service (06) | DRG 470 ==
LOC: C.ACU 05:08 → C.3E 06:52 → ENRESERV 09:04
PROVIDERS: ADMIT Orthopaedic Surgery; ATTEND Orthopaedic Surgery
PROC: 0SRD0J9 Replacement of Left Knee Joint with Synthetic Substitute, Cemented, Open Approach (ICD-10-PCS; principal; 2017-08-30 07:00)
DX: M17.12 Unilateral primary osteoarthritis, left knee (principal); G47.30 Sleep apnea, unspecified; F41.9 Anxiety disorder, unspecified; K21.9 Gastro-esophageal reflux disease without esophagitis; E66.9 Obesity, unspecified; Z68.37 Body mass index [BMI] 37.0-37.9, adult

== ENCOUNTER 2017-10-07 17:24 | Emergency (ER) | payer BC ==
[~2017-10-07] VITALS: Ht 154.9 cm; Wt 90.0 kg
[2017-10-07 17:24] VITALS: TEMP 36.9; Ht 154.9 cm; Wt 90.0 kg
[~2017-10-07 17:24] MED LIST changes: +ACET-24 PO; +CALC500C70 PO; -CALC600T37 PEG; +CLB200 PO; +ONDA8TAB6 PO; +RXC5 PO; +SNK PO
[2017-10-07] MEDS ORDERED: ASPI81TA28 PO (17:37)
--- NOTE | 2017-10-07 18:18 | EMERGENCY ROOM VISIT NOTE ---
History First contact with patient: 17:27 Chief Complaint: LEG PAIN,LEG INJURY Stated Complaint: FALL/KNEE LAC History of Present Illness The patient is a 51 year old female who presents to the Emergency Room with complaints of a fall. The patient states that she had a left total knee replacement performed by Dr. Rico 4 weeks ago. Today, the patient states that her right knee buckled when she was standing up and she fell onto the right side. She states that she struck her left knee on her right leg, causing her scar to split open. There has been some bleeding from the area. She reports some mild stinging pain, but denies any significant pain in the left knee. She states she has been healing well prior to this. She denies any numbness or weakness. She denies her head or any other injuries associated with the fall. Review of Systems A 6 point review of systems was reviewed with the patient with pertinent positives and negatives as per history of present illness. All else were negative. Past Medical/Surgical History Surgical Problems: (1) S/P TKR (total knee replacement) Social History Smoking Status: Former Smoker Current/Historical Medications Scheduled Aspirin (Aspirin Ec), 81 MG PO DAILY Calcium/Vitamin D (Os-Prasanna 500 Plus D), 1 TAB PO DAILY Cephalexin Monohydrate (Keflex), 500 MG PO QID Cholecalciferol (Vitamin D3), 1 TAB PO QA Fish Oil ([place]-3), 1 CAP PO QAM Flaxseed (Linseed) (Flaxseed Oil 1000 mg), 1 TAB PO Q12 Fluoxetine (Prozac), 40 MG PO QAM Fluticasone Propionate (Nasal) (Flonase Allergy Relief), 2 SPRAYS NA QAM Multivitamin (Multivitamin), 1 TAB PO QAM Ranitidine Hcl (Zantac), 150 MG PO BID Simvastatin (Zocor), 20 MG PO QPM Scheduled PRN Alprazolam (Xanax), 1 TAB PO TID PRN for Anxiety/Agitation Physical Exam Vital Signs Date Time Temp Pulse Resp B/P (MAP) Pulse Ox O2 Delivery O2 Flow Rate FiO2 10/07/17 20:40 81 16 123/65 96 10/07/17 19:31 81 18 129/77 95 Room Air 10/07/17 19:00 87 150/74 96 Room Air 10/07/17 18:30 93 16 122/68 94 Room Air 10/07/17 17:24 36.9 91 16 118/95 97 Room Air Physical Exam VITALS: Vitals are noted on the nurse's note and reviewed by myself. Vital signs stable. GENERAL: This is a 51-year-old female, in no acute distress, nondiaphoretic, well-developed well-nourished. SKIN: There is a vertical surgical scar extending from above the left patella down the length of the knee to just inferior to the patella. The bottom one third of the scar has dehisced and there is about 1 cm of gaping as well as a small amount of bleeding. No foreign bodies seen in the wound. The wound dehiscence does not appear to extend past the subcutaneous tissue and is not into the joint capsule. MUSCULOSKELETAL: Full range of motion. No bony tenderness. NEURO: Patient was alert and oriented to person place and time. Medical Decision & Procedures ER Provider Diagnostic Interpretation: L KNEE 3 VIEWS CLINICAL HISTORY: 51 years-old Female presenting with left knee injury, fall, recently replacement. TECHNIQUE: Frontal, crosstable lateral, and sunrise views of the left knee were obtained. COMPARISON: 08/30/2017. FINDINGS: Total left knee arthroplasty with patellar resurfacing. No acute fracture. No malalignment. No hardware complication. Surgical drain has been removed. No residual intra-articular gas. Trace knee joint effusion may be present. Diffuse subcutaneous edema may also be present. IMPRESSION: Expected postsurgical appearance status post total knee arthropathy with patellar resurfacing. No acute osseous injury. Medications Administered Medications (Trade) Dose Ordered Sig/[facility] Route Start Time Stop Time Status Last Admin Dose Admin Cephalexin Monohydrate (Keflex 500MG Home Pack) 1 homepack NOW ONCE PO 10/07/17 20:00 10/07/17 20:01 DC 10/07/17 20:32 1 HOMEPACK Medical Decision The patient was evaluated as above. The bottom one third of the left knee surgical wound has dehisced. X-rays of the left knee were obtained and read by radiology with no acute findings. The wound was explored and does not appear to extend into the joint capsule but is fairly superficial. I did discuss the case with Dr. Monk of [facility]. He recommended placing Steri- Strips on the knee and having the patient call for follow-up in the office first thing Monday. The patient was agreeable to this treatment plan. She was placed in a knee immobilizer and will use a walker at home to aid with ambulation. I did choose to place her on Keflex prophylactically to prevent any infection from developing. She will call the office for follow-up on Monday. She verbalized understanding of my assessment and treatment plan and was discharged home in good condition. Medication Reconcilliation Current Medication List: was personally reviewed by me Blood Pressure Screening Patient's blood pressure: Normal blood pressure Impression Primary Impression: Surgical wound dehiscence Departure Information Dispostion Home / Self-Care Condition GOOD Prescriptions Cephalexin Monohydrate (Keflex) 500 Mg Cap 500 MG PO QID for 7 Days, #28 CAP Prov: Cleo Gregory ., HERSON 10/07/17 Referrals Amelie Godinez, C.R.N.P. (PCP) Ky Rico,D.O. Patient Instructions [facility] Additional Instructions Follow-up with [facility] Monday. Call for appointment. Keflex as prescribed. Keep the knee immobilizer in place and do not bend the knee until follow-up with orthopedics and cleared by them. Use the walker. Return for any signs of infection or any other new/concerning symptoms. Problem Qualifiers Primary Impression: Surgical wound dehiscence Encounter type: initial encounter Qualified Codes: T81.31XA - Disruption of external operation (surgical) wound, not elsewhere classified, initial encounter
--- NOTE | 2017-10-07 18:29 | DIAGNOSTIC IMAGING REPORT ---
L KNEE 3 VIEWS CLINICAL HISTORY: 51 years-old Female presenting with left knee injury, fall, recently replacement. TECHNIQUE: Frontal, crosstable lateral, and sunrise views of the left knee were obtained. COMPARISON: 08/30/2017. FINDINGS: Total left knee arthroplasty with patellar resurfacing. No acute fracture. No malalignment. No hardware complication. Surgical drain has been removed. No residual intra-articular gas. Trace knee joint effusion may be present. Diffuse subcutaneous edema may also be present. IMPRESSION: Expected postsurgical appearance status post total knee arthropathy with patellar resurfacing. No acute osseous injury. Electronically signed by: Chaim Taveras M.D. 10/07/2017 6:27 PM Dictated Date/Time: 10/07/2017 6:26 PM
[2017-10-07] MEDS ORDERED: CEPH500C PO (19:58)
[2017-10-07] MEDS ORDERED: CEPHALEXIN 500MG HOME PACK 1 EA BTL PO ONE (20:00)
[2017-10-07 20:40] VITALS: BP 123/65; PULSE 81; O2SAT 96
== END 2017-10-07 20:40 | disposition home or self-care (01) ==
LOC: EDBD 17:24 → C.EDA 17:27
DX: T81.31XA Disruption of external operation (surgical) wound, not elsewhere classified, initial encounter (principal); W01.0XXA Fall on same level from slipping, tripping and stumbling without subsequent striking against object, initial encounter; Z96.652 Presence of left artificial knee joint; Z87.891 Personal history of nicotine dependence; Z79.82 Long term (current) use of aspirin

== ENCOUNTER → 2018-07-17 | Outpatient (CLI) | payer OTHER ==
[~2018-07-17] MED LIST changes: -ACET-24 PO; -CLB200 PO; -HYDR-3292 TOP; -ONDA8TAB6 PO; -RXC5 PO; -SNK PO
--- NOTE | 2018-07-17 09:12 | DIAGNOSTIC IMAGING REPORT ---
ABDOMEN LIMITED (US) CLINICAL HISTORY: 52 years-old Female presenting with US ABDOMEN LIMITED RUQ PAIN EVAL FOR GALLSTONE. TECHNIQUE: Real-time grayscale and limited color Doppler ultrasound imaging of the abdomen limited to the right upper quadrant was performed. COMPARISON: 08/15/2016. FINDINGS: Pancreas: Visualized portions of the pancreatic head and body normal. Liver: Normal echogenicity and echotexture. The liver measures 17.6 cm in maximal sagittal dimension. No sonographic evidence of hepatic mass. Main portal vein patent with normal directional flow. Biliary: No intrahepatic biliary ductal dilatation. Common bile duct measures up to 6 mm in diameter. Gallbladder: No evidence of gallstones, gallbladder wall thickening, gallbladder distention, or pericholecystic fluid or inflammatory change. Right kidney: Mild expansion of renal sinus fat may suggest cortical atrophy. The right kidney measures 9.9 cm in length. Other mild pelvocaliectasis or multiple parapelvic cysts are present. The appearance is unchanged. Ascites: None. Other: None. IMPRESSION: 1. No cholelithiasis or biliary ductal dilatation. 2. Stable mild right pelvocaliectasis versus parapelvic cysts. Electronically signed by: Chaim Taveras M.D. 07/17/2018 9:11 AM Dictated Date/Time: 07/17/2018 9:09 AM
== END | disposition home or self-care (01) ==
LOC: C.ULTR 08:17
PROVIDERS: ATTEND Nurse Practitioner Family
DX: R10.11 Right upper quadrant pain (principal)